=== PATIENT | female | born 1930 | race Caucasian/White ===

== ENCOUNTER 2017-07-28 18:02 | Emergency (ER) | payer OTHER ==
[~2017-07-28] VITALS: Ht 157.5 cm; Wt 55.0 kg
[2017-07-28 18:10] VITALS: Ht 157.5 cm; Wt 55.0 kg
--- NOTE | 2017-07-28 18:34 | EMERGENCY ROOM VISIT NOTE ---
History First contact with patient: 18:23 Chief Complaint: LEG PAIN,LEG INJURY Stated Complaint: LEG PAIN/SWELLING/POSS. DVT History of Present Illness The patient is a 87 year old female who presents to the Emergency Room with complaints of a 1 week history of left sided calf pain and swelling. She states the pain is about a 5/10, but has been remaining constant over the week. She states she had a small clot in that leg 2-3 weeks prior and came to [facility], but they did not put her on any medications, as she has had a history of bleeding on coumadin in the past. She says the swelling resolved, and then started back up 1 week ago. She denies trauma, recent surgery, recent immobilization, and states she has gotten blood clots before in the past and they have resolved. She denies chest pain, cough or shortness of breath, and states she feels well otherwise. Review of Systems See HPI for pertinent positives & negatives. A total of 10 systems reviewed and were otherwise negative. Social History Smoking Status: Never Smoker Current/Historical Medications Scheduled Enoxaparin (Lovenox), 50 MG SQ Q24H Furosemide (Lasix), 40 MG PO DAILY Metformin Hcl (Glucophage), 500 MG PO BID Warfarin Sod (Jantoven), 5 MG PO DAILY [Potassium Otc], 1 TAB PO DAILY Scheduled PRN Acetaminophen (Tylenol), 500 MG PO Q4 PRN for Pain Physical Exam Vital Signs Date Time Temp Pulse Resp B/P (MAP) Pulse Ox O2 Delivery O2 Flow Rate FiO2 07/28/17 20:45 83 18 198/99 96 Room Air 07/28/17 19:52 82 18 192/113 96 Room Air 07/28/17 19:50 96 Room Air 07/28/17 19:44 79 07/28/17 18:10 36.4 90 20 200/96 96 Room Air Physical Exam HEENT: Head - normocephalic and atraumatic. Pupils are equal, round, and reactive to light. Extraocular eye muscles are intact and sclera are anicteric. Ears - bilaterally patent canals with noninjected tympanic membranes and no evidence of hemotympanum. Nose - moist nasal mucosa without discharge. Mouth - moist buccal mucosa. Oropharynx is nonerythematous and there is no tonsillar exudate or edema noted. Neck: Supple; no JVD, nuchal rigidity, cervical lymphadenopathy, or auscultated bruits. Heart: Regular rate and rhythm. There is a normal S1 and S2 with no murmurs, clicks, or gallops appreciated. Lungs: Clear to auscultation bilaterally with no wheezes, rales, or rhonchi. Abdomen: Soft, completely nontender, nondistended, with good bowel sounds. There are no palpable pulsatile masses or hepatosplenomegaly. There is no guarding, rigidity, or rebound noted. Extremities: Left sided leg swelling, 2+ pitting edema. Her left ankle and calf is erythematous, hot, swollen and tender. Chronic venous stasis changes present. There are easily palpable peripheral pulses. Neuro:The patient is awake and alert, oriented to day, time, and place. Muscle strength is 5/5 in all 4 extremities. 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 There are no cerebellar signs. Medical Decision & Procedures ER Provider Diagnostic Interpretation: ULTRASOUND VENOUS DOPPLER LWR EXT BILA CLINICAL HISTORY: Bilateral lower extremity pain and swelling COMPARISON STUDY: No previous studies for comparison. FINDINGS: On the right, no thrombus is visualized within the common femoral, superficial femoral, popliteal, or proximal trifurcation veins of the calf. On the left, no thrombus is visualized in the common femoral superficial femoral or popliteal veins. There is nonocclusive thrombus within the posterior tibial and peroneal veins. IMPRESSION: 1. Left calf DVT with involvement of the posterior tibial and peroneal veins 2. No evidence of right lower extremity DVT KUB CLINICAL HISTORY: DVT. Dilated position of IVC filter. COMPARISON STUDY: No previous studies for comparison. FINDINGS: There is no pathologic bowel dilatation. No IVC filter is visualized. The bones are osteopenic. Multiple mild vertebral body compression deformities are evident. There are no calcification suspicious for renal calculi. IMPRESSION: 1. No evidence of pathologic bowel dilatation 2. No IVC filter is visualized. CHEST ONE VIEW PORTABLE CLINICAL HISTORY: Edema. DVT. COMPARISON STUDY: No previous studies for comparison. FINDINGS: The cardiac and mediastinal contours are normal. There is no evidence of focal pulmonary consolidation. There is no evidence of failure. No pleural effusions are visualized. IMPRESSION: No active disease in the chest. Laboratory Results 07/28/17 19:45 Red Blood Count 4.15, Mean Corpuscular Volume 90.4, Mean Corpuscular Hemoglobin 31.3, Mean Corpuscular Hemoglobin Concent 34.7, Mean Platelet Volume 9.3, Neutrophils (%) (Auto) 60.1, Lymphocytes (%) (Auto) 26.8, Monocytes (%) (Auto) 9.2, Eosinophils (%) (Auto) 2.0, Basophils (%) (Auto) 0.5, Neutrophils # (Auto) 3.83, Lymphocytes # (Auto) 1.71, Monocytes # (Auto) 0.59, Eosinophils # (Auto) 0.13, Basophils # (Auto) 0.03 07/28/17 19:45 Test 07/28/17 19:45 07/28/17 20:23 White Blood Count 6.38 K/uL (4.8-10.8) Red Blood Count 4.15 M/uL (4.2-5.4) Hemoglobin 13.0 g/dL (12.0-16.0) Hematocrit 37.5 % (37-47) Mean Corpuscular Volume 90.4 fL (80-100) Mean Corpuscular Hemoglobin 31.3 pg (25-34) Mean Corpuscular Hemoglobin Concent 34.7 g/dl (32-36) Platelet Count 185 K/uL (130-400) Mean Platelet Volume 9.3 fL (7.4-10.4) Neutrophils (%) (Auto) 60.1 % Lymphocytes (%) (Auto) 26.8 % Monocytes (%) (Auto) 9.2 % Eosinophils (%) (Auto) 2.0 % Basophils (%) (Auto) 0.5 % Neutrophils # (Auto) 3.83 K/uL (1.4-6.5) Lymphocytes # (Auto) 1.71 K/uL (1.2-3.4) Monocytes # (Auto) 0.59 K/uL (0.11-0.59) Eosinophils # (Auto) 0.13 K/uL (0-0.5) Basophils # (Auto) 0.03 K/uL (0-0.2) RDW Standard Deviation 40.3 fL (36.4-46.3) RDW Coefficient of Variation 12.4 % (11.5-14.5) Immature Granulocyte % (Auto) 1.4 % Immature Granulocyte # (Auto) 0.09 K/uL (0.00-0.02) Anion Gap 8.0 mmol/L (3-11) Est Creatinine Clear Calc Drug Dose 18.3 ml/min Estimated GFR () 31.6 Estimated GFR (Non- 27.2 BUN/Creatinine Ratio 24.9 (10-20) Calcium Level 8.8 mg/dl (8.5-10.1) Chemistry Specimen Hemolysis Prothrombin Time 10.7 SECONDS (9.0-12.0) Prothromb Time International Ratio 1.0 (0.9-1.1) ED Course 18:15: The patient was evaluated in room B2 18:35: The case was discussed with the attending, Dr. Reid 18:40: The patient was seen by myself and Dr. Reid. 19:50: Records received from [facility] that states that the patient had superficial thrombophlebitis of her right leg and was discharged home on warfarin in Oct 2016. 20:05: The patient was seen with her POA (granddaughter). 20:35: The patient was reassessed, and she expressed understanding of her treatment plan. 20:55: Instructions on administering the lovenox and warfarin were explained to the patient and granddaughter. Medical Decision The patient is a 87 year old female who presents to the Emergency Room with complaints of a 1 week history of left sided calf pain and swelling. Differentials include DVT, cellulitis, thrombophlebitis, chronic venous stasis. Ultrasound revealed DVT in the left leg (see above). We spoke at length with her POA/granddaughter, who states that she was diagnosed with right sided superficial thrombophlebitis in October 2016, and that they stopped the warfarin almost immediately after she was discharged as she was very prone to bruising and bleeding from her arms and legs. She also states that she believes Ms. Hackett may have passed some blood in her urine at this time. She denies hematemesis, hemoptysis or hematuria. She is hesitant to use blood thinners again given that Ms. Hackett lives 30 minutes away from a hospital and the granddaughter lives 45 minutes away from her. The risk and benefits of anticoagulation was explained to her. We offered to admit her in the hospital or to a rehab facility while she was treated with anticoagulation, but they declined, stating that when she is away from home, her dementia becomes worse. The granddaughter stated that she will ensure the people who care for Ms. Hackett are aware of this, and that they monitor her carefully to ensure she does not have any bleeding episodes. Impression Primary Impression: Deep vein thrombosis Departure Information Dispostion Home / Self-Care Prescriptions Enoxaparin (Lovenox) 60 Mg/0.6 Ml Inj 50 MG SQ Q24H for 4 Days, #4 SYR Inject 0.5mL every 24 hours Prov: Subhash Wagner M.D. 07/28/17 Warfarin Sod (Jantoven) 5 Mg Tab 5 MG PO DAILY for 30 Days, #30 TAB Prov: Subhash Wagner M.D. 07/28/17 Patient Instructions My [facility] Additional Instructions You were diagnosed with a clot in the deep veins of your left leg. We are prescribing blood thinners for you to help with this. We gave you one shot of lovenox here, but you will need one shot every day for the next four days. The lovenox comes in syringes with 0.6mls of solution, please administer 0.5mls for each shot, as this is the correct dosage based on your weight. We are also discharging you on a medication called warfarin, another blood thinner. Please take this once a day and follow up closely with your primary care doctor. If you notice any blood in your urine, stool, or if you cough up blood, throw up blood, or have any episodes of bleeding, please come back to the emergency department immediately. Resident Tracking Resident Involvement: Resident Care Provided Care Provided: Adult Hospital Medicine
[2017-07-28] MEDS ORDERED: GLC/500 PO (18:48)
[2017-07-28] MEDS ORDERED: FRS/40 PO (18:48)
[2017-07-28] MEDS ORDERED: ACET-1256 PO (18:48)
[2017-07-28] MEDS ORDERED: POTASSIUM OTC PO (18:48)
--- NOTE | 2017-07-28 19:23 | EMERGENCY ROOM VISIT NOTE ---
History Report prepared by Sintia: Betzaida Luna Under the Supervision of: Dr. Matt Reid M.D. First contact with patient: 18:02 Chief Complaint: LEG PAIN,LEG INJURY Stated Complaint: LEG PAIN/SWELLING/POSS. DVT History of Present Illness The patient is an 87 year old female who presents to the Emergency Room with complaints of persistent left calf pain starting 1 week ago. She presents to the ED by EMS. She often gets pain and swelling in her legs, but it usually resolves within a couple of days. She presents to the ED because her calf pain persists over 1 week. She currently rates her discomfort as a 5/10 in severity. She is able to walk. She denies any recent trauma, surgery, or immobilization. She notes that she had a clot in the same leg 3-4 weeks ago. She is not on warfarin anymore because she has a history of bleeding on warfarin. She denies any chest pain or SOB. She otherwise feels well. She has a history of diabetes. She is on a water pill. Source of History: patient Onset: 1 week ago Position: leg (left) Symptom Intensity: 5/10 Quality: other (pain) Timing: other (persistent) Associated Symptoms: No chest pain, No SOB Review of Systems See HPI for pertinent positives & negatives. A total of 10 systems reviewed and were otherwise negative. Past Medical & Surgical Medical Problems: (1) Diabetes (2) DVT (deep venous thrombosis) Family History Noncontributory secondary to age. Social History Marital Status: Occupation Status: retired Current/Historical Medications Scheduled Enoxaparin (Lovenox), 50 MG SQ Q24H Furosemide (Lasix), 40 MG PO DAILY Metformin Hcl (Glucophage), 500 MG PO BID Warfarin Sod (Jantoven), 5 MG PO DAILY [Potassium Otc], 1 TAB PO DAILY Scheduled PRN Acetaminophen (Tylenol), 500 MG PO Q4 PRN for Pain Allergies Uncoded Allergies: BLOOD THINNERS (Adverse Reaction, Unknown, DOESN'T WORK RIGHT ON HER, 07/28) Physical Exam Vital Signs Date Time Temp Pulse Resp B/P (MAP) Pulse Ox O2 Delivery O2 Flow Rate FiO2 07/28/17 21:40 36.4 83 18 198/99 96 07/28/17 20:45 83 18 198/99 96 Room Air 07/28/17 19:52 82 18 192/113 96 Room Air 07/28/17 19:50 96 Room Air 07/28/17 19:44 79 07/28/17 18:10 36.4 90 20 200/96 96 Room Air Physical Exam GENERAL: Patient is a healthy-appearing well-nourished female HEAD: Normocephalic atraumatic EYES: Ocular movements intact pupils equal and react to light OROPHARYNX mucous membranes are moist no exudates present no erythema or edema present NECK: Supple no nuchal rigidity CHEST: Good equal expansion LUNGS: Clear and equal to auscultation CARDIAC: Normal S1 and S2 ABDOMEN: Soft nontender no guarding BACK: No CVA tenderness EXTREMITIES: Left leg is warm, swollen, and tender to touch. Otherwise no pain upon palpation normal muscle strength in all groups no clubbing cyanosis or edema NEURO: Patient is following commands and answering questions appropriately. Alert and oriented x3 Cranial Nerves 2-12 grossly intact Medical Decision & Procedures ER Provider Diagnostic Interpretation: X-ray results as stated below per interpretation by me and the radiologist. Radiology results as stated below per my review and radiologist interpretation: CHEST ONE VIEW PORTABLE CLINICAL HISTORY: Edema. DVT. COMPARISON STUDY: No previous studies for comparison. FINDINGS: The cardiac and mediastinal contours are normal. There is no evidence of focal pulmonary consolidation. There is no evidence of failure. No pleural effusions are visualized.[ IMPRESSION: No active disease in the chest. Electronically signed by: Last Anderson M.D. 07/28/2017 7:42 PM Dictated Date/Time: 07/28/2017 7:42 PM KUB CLINICAL HISTORY: DVT. Dilated position of IVC filter. COMPARISON STUDY: No previous studies for comparison. FINDINGS: There is no pathologic bowel dilatation. No IVC filter is visualized. The bones are osteopenic. Multiple mild vertebral body compression deformities are evident. There are no calcification suspicious for renal calculi. IMPRESSION: 1. No evidence of pathologic bowel dilatation 2. No IVC filter is visualized. Electronically signed by: Last Anderson M.D. 07/28/2017 7:43 PM Dictated Date/Time: 07/28/2017 7:42 PM ULTRASOUND VENOUS DOPPLER LWR EXT BILA CLINICAL HISTORY: Bilateral lower extremity pain and swelling COMPARISON STUDY: No previous studies for comparison. FINDINGS: On the right, no thrombus is visualized within the common femoral, superficial femoral, popliteal, or proximal trifurcation veins of the calf. On the left, no thrombus is visualized in the common femoral superficial femoral or popliteal veins. There is nonocclusive thrombus within the posterior tibial and peroneal veins. IMPRESSION: 1. Left calf DVT with involvement of the posterior tibial and peroneal veins 2. No evidence of right lower extremity DVT Electronically signed by: Last Anderson M.D. 07/28/2017 7:21 PM Dictated Date/Time: 07/28/2017 7:20 PM Laboratory Results 07/28/17 19:45 Red Blood Count 4.15, Mean Corpuscular Volume 90.4, Mean Corpuscular Hemoglobin 31.3, Mean Corpuscular Hemoglobin Concent 34.7, Mean Platelet Volume 9.3, Neutrophils (%) (Auto) 60.1, Lymphocytes (%) (Auto) 26.8, Monocytes (%) (Auto) 9.2, Eosinophils (%) (Auto) 2.0, Basophils (%) (Auto) 0.5, Neutrophils # (Auto) 3.83, Lymphocytes # (Auto) 1.71, Monocytes # (Auto) 0.59, Eosinophils # (Auto) 0.13, Basophils # (Auto) 0.03 07/28/17 19:45 Test 07/28/17 19:45 07/28/17 20:23 White Blood Count 6.38 K/uL (4.8-10.8) Red Blood Count 4.15 M/uL (4.2-5.4) Hemoglobin 13.0 g/dL (12.0-16.0) Hematocrit 37.5 % (37-47) Mean Corpuscular Volume 90.4 fL (80-100) Mean Corpuscular Hemoglobin 31.3 pg (25-34) Mean Corpuscular Hemoglobin Concent 34.7 g/dl (32-36) Platelet Count 185 K/uL (130-400) Mean Platelet Volume 9.3 fL (7.4-10.4) Neutrophils (%) (Auto) 60.1 % Lymphocytes (%) (Auto) 26.8 % Monocytes (%) (Auto) 9.2 % Eosinophils (%) (Auto) 2.0 % Basophils (%) (Auto) 0.5 % Neutrophils # (Auto) 3.83 K/uL (1.4-6.5) Lymphocytes # (Auto) 1.71 K/uL (1.2-3.4) Monocytes # (Auto) 0.59 K/uL (0.11-0.59) Eosinophils # (Auto) 0.13 K/uL (0-0.5) Basophils # (Auto) 0.03 K/uL (0-0.2) RDW Standard Deviation 40.3 fL (36.4-46.3) RDW Coefficient of Variation 12.4 % (11.5-14.5) Immature Granulocyte % (Auto) 1.4 % Immature Granulocyte # (Auto) 0.09 K/uL (0.00-0.02) Anion Gap 8.0 mmol/L (3-11) Est Creatinine Clear Calc Drug Dose 18.3 ml/min Estimated GFR () 31.6 Estimated GFR (Non- 27.2 BUN/Creatinine Ratio 24.9 (10-20) Calcium Level 8.8 mg/dl (8.5-10.1) Chemistry Specimen Hemolysis Prothrombin Time 10.7 SECONDS (9.0-12.0) Prothromb Time International Ratio 1.0 (0.9-1.1) Labs reviewed by ED physician. Medications Administered Medications (Trade) Dose Ordered Sig/Jacqui Route Start Time Stop Time Status Last Admin Dose Admin Enoxaparin Sodium (Lovenox Inj) 55 mg 2100 ONCE SQ 07/28/17 21:00 07/28/17 21:01 DC 07/28/17 21:00 55 MG ED Course 1849: Past medical records reviewed. The patient was evaluated in room B2. A complete history and physical examination was performed. 2019: I reevaluated the patient. I spoke with her POA about anticoagulation and they are in agreement with the plan. 2037: Lovenox Inj 55 mg SQ. Medical Decision Differential diagnosis: Etiologies such as DVT, musculoskeletal, infection, joint effusion, trauma, lymphedema, idiopathic, CHF, as well as others were entertained. This is a 87-year-old female who presents emergency department complaining of pain to her left lower show any. The patient is adamantly refusing to be admitted to the hospital. Her power of document review attorney also is refusing to have the patient admitted to the hospital. The patient does have a DVT on ultrasound. We reviewed the risks and benefits of placing the patient on anticoagulation with the family and after reviewing these risks the power of document review attorney wants to place the patient on Lovenox and Coumadin and will follow-up with the patient's primary care physician. Resident Physician Supervision Note: I interviewed and examined the patient. Discussed with Dr. Wagner and agree with findings and plan as documented in the note. Documented By: Matt Reid Medication Reconcilliation Current Medication List: was personally reviewed by me Blood Pressure Screening Patient's blood pressure: Elevated blood pressure Blood pressure disposition: Referred to PCP Impression Primary Impression: Deep vein thrombosis Scribe Attestation The scribe's documentation has been prepared under my direction and personally reviewed by me in its entirety. I confirm that the note above accurately reflects all work, treatment, procedures, and medical decision making performed by me. Departure Information Dispostion Home / Self-Care Prescriptions Enoxaparin (Lovenox) 60 Mg/0.6 Ml Inj 50 MG SQ Q24H for 4 Days, #4 SYR Inject 0.5mL every 24 hours Prov: Subhash Wagner M.D. 07/28/17 Warfarin Sod (Jantoven) 5 Mg Tab 5 MG PO DAILY for 30 Days, #30 TAB Prov: Subhash Wagner M.D. 07/28/17 Referrals Ziggy Ascencio D.O. Forms HOME CARE DOCUMENTATION FORM, IMPORTANT VISIT INFORMATION Patient Instructions My [facility] Additional Instructions You were diagnosed with a clot in the deep veins of your left leg. We are prescribing blood thinners for you to help with this. We gave you one shot of lovenox here, but you will need one shot every day for the next four days. The lovenox comes in syringes with 0.6mls of solution, please administer 0.5mls for each shot, as this is the correct dosage based on your weight. We are also discharging you on a medication called warfarin, another blood thinner. Please take this once a day and follow up closely with your primary care doctor. If you notice any blood in your urine, stool, or if you cough up blood, throw up blood, or have any episodes of bleeding, please come back to the emergency department immediately. Problem Qualifiers Primary Impression: Deep vein thrombosis DVT location: lower extremity Affected thrombotic vein of extremity: unspecified vein of extremity Chronicity: unspecified Laterality: unspecified laterality Qualified Codes: I82.409 - Acute embolism and thrombosis of unspecified deep veins of unspecified lower extremity
--- NOTE | 2017-07-28 19:43 | DIAGNOSTIC IMAGING REPORT ---
CHEST ONE VIEW PORTABLE CLINICAL HISTORY: Edema. DVT. COMPARISON STUDY: No previous studies for comparison. FINDINGS: The cardiac and mediastinal contours are normal. There is no evidence of focal pulmonary consolidation. There is no evidence of failure. No pleural effusions are visualized.[ IMPRESSION: No active disease in the chest. Electronically signed by: Last Anderson M.D. 07/28/2017 7:42 PM Dictated Date/Time: 07/28/2017 7:42 PM
--- NOTE | 2017-07-28 19:44 | DIAGNOSTIC IMAGING REPORT ---
KUB CLINICAL HISTORY: DVT. Dilated position of IVC filter. COMPARISON STUDY: No previous studies for comparison. FINDINGS: There is no pathologic bowel dilatation. No IVC filter is visualized. The bones are osteopenic. Multiple mild vertebral body compression deformities are evident. There are no calcification suspicious for renal calculi. IMPRESSION: 1. No evidence of pathologic bowel dilatation 2. No IVC filter is visualized. Electronically signed by: Last Anderson M.D. 07/28/2017 7:43 PM Dictated Date/Time: 07/28/2017 7:42 PM
[2017-07-28 19:50] VITALS: O2SAT 96
[2017-07-28 19:55] LABS: BASO % 0.5 %; BASO ABS # 0.03 K/uL (0-0.2); COMPLETE YES; HEMATOCRIT 37.5 % (37-47); IG% 1.4 %; LYMPH % 26.8 %; LYMPH ABS # 1.71 K/uL (1.2-3.4); MEAN CELL VOLUME 90.4 fL (80-100); MEAN CORPUSCULAR HEMOGLOBIN 31.3 pg (25-34); MEAN CORPUSCULAR HGB CONC 34.7 g/dl (32-36); MEAN PLATELET VOLUME 9.3 fL (7.4-10.4); MONO % 9.2 %; NEUT % 60.1 %; PLATELET COUNT 185 K/uL (130-400); RED BLOOD COUNT 4.15 M/uL (4.2-5.4); WHITE BLOOD COUNT 6.38 K/uL (4.8-10.8)
[2017-07-28 20:19] LABS: BUN/CREATININE RATIO 24.9 (10-20); CALCIUM 8.8 mg/dl (8.5-10.1); CREATININE 1.65 mg/dl (0.60-1.20)
[2017-07-28 20:27] LABS: POTASSIUM 4.2 mmol/L (3.5-5.1)
[2017-07-28 20:36] LABS: PROTHROMBIN TIME (PATIENT) 10.7 SECONDS (9.0-12.0)
[2017-07-28] MEDS ORDERED: ENOXAPARIN 1 MG/KG SQ STA (20:38)
[2017-07-28] MEDS ORDERED: ENOXAPARIN 40 MG/0.4 ML SYR SQ ONE (20:45)
[2017-07-28] MEDS ORDERED: WARF5TAB7 PO (20:54)
[2017-07-28] MEDS ORDERED: ENOX60IN SQ (20:54)
[2017-07-28] MEDS ORDERED: ENOXAPARIN 60 MG/0.6 ML SYR SQ ONE (21:00)
[2017-07-28 21:40] VITALS: BP 198/99; PULSE 83; TEMP 36.4; O2SAT 96
== END 2017-07-28 21:49 | disposition home or self-care (01) ==
LOC: C.EDB 18:07
DX: I82.4Z2 Acute embolism and thrombosis of unspecified deep veins of left distal lower extremity (principal); E11.9 Type 2 diabetes mellitus without complications; Z86.718 Personal history of other venous thrombosis and embolism